=== PATIENT | male | born 1995 | race African-American/Black ===

== ENCOUNTER → 2023-08-22 | Outpatient (CLI) | payer OTHER | LOC: MHCPAIN 13:06 | DX: M54.16 Radiculopathy, lumbar region (principal); M51.26 Other intervertebral disc displacement, lumbar region | CPT/HCPCS: G0463 ==

== ENCOUNTER → 2023-09-06 | Outpatient (CLI) | payer OTHER | LOC: MHCPAIN 10:04 | DX: M54.16 Radiculopathy, lumbar region (principal); M51.26 Other intervertebral disc displacement, lumbar region | CPT/HCPCS: G0463 ==

== ENCOUNTER → 2023-09-27 | Outpatient (CLI) | payer OTHER | LOC: COL.RAD 15:26 | DX: M43.8X6 Other specified deforming dorsopathies, lumbar region (principal); M54.16 Radiculopathy, lumbar region ==

== ENCOUNTER → 2023-10-13 | Outpatient (CLI) | payer OTHER | LOC: MHCPAIN 09:59 | DX: M54.12 Radiculopathy, cervical region (principal); M50.221 Other cervical disc displacement at C4-C5 level; M50.222 Other cervical disc displacement at C5-C6 level | CPT/HCPCS: G0463 ==